=== PATIENT | male | born 1950 | race Hispanic/Latino ===

== ENCOUNTER 2018-11-19 08:01 | Outpatient (CLI) | payer OTHER ==
--- NOTE | 2018-11-19 08:23 | RAD ---
XR Chest Pa Lat STANDARD HISTORY: Cough COMPARISON: 05/16/2013 FINDINGS: The heart size is normal. The aorta is tortuous. The lungs are well expanded without focal areas of consolidation, pneumothorax or pleural effusions. There are degenerative changes in the spine. Old left-sided rib fractures are redemonstrated. IMPRESSION: No radiographic evidence of acute cardiopulmonary process.
== END 2018-11-19 08:02 | disposition home or self-care (01) ==
LOC: RAD-FRANK 08:01
PROVIDERS: ATTEND Nurse Practitioner Family
DX: J20.9 Acute bronchitis, unspecified (principal)
CPT/HCPCS: 71046

== ENCOUNTER 2018-12-16 11:29 | Outpatient (CLI) | payer OTHER ==
--- NOTE | 2018-12-16 11:47 | RAD ---
3 views right foot. HISTORY: Right heel pain. AP, lateral and oblique views right foot obtained. No evidence of right foot fractures, subluxations or bony lesions seen. IMPRESSION: normal 3 views right foot.
== END 2018-12-16 11:30 | disposition home or self-care (01) ==
LOC: RAD-FRANK 11:29
PROVIDERS: ATTEND Nurse Practitioner Family
DX: M79.671 Pain in right foot (principal)